=== PATIENT | male | born 1965 | race Caucasian/White ===

== ENCOUNTER 2017-05-03 14:20 | Emergency (ER) | payer OTHER ==
[~2017-05-03] VITALS: Ht 170.2 cm; Wt 97.5 kg
--- NOTE | ~2017-05-03 | EKG ---
[address] [address] ELECTROCARDIOGRAM REPORT Name: INDRAHOUSTON [facility] [id number] Admission: 05/03/17 Attend Phys: Discharge: 05/03/17 Date of : 61 Report #: [id number] THIS REPORT FOR: //name// [facility] ED Test Date: 2017-05-03 Test Time: 14:27:19 Pat Name: HOUSTON BURRELL Department: Room: Gender: M Training Officer: [id number] : 1965 Requested By: Taylor Alejandro Order Number: [id number] MD: Ayden Winter Measurements Intervals [place] Rate: 70 P: 39 RI: 160 QRS: -55 QRSD: 95 T: 61 QT: 412 QTc: 445 Interpretive Statements Sinus rhythm Left anterior fascicular block Compared to ECG 04/04/2017 09:10:11 No significant changes Electronically Signed On 05-04-2017 13:26:31 CDT by Ayden Winter [email or web address] <ELECTRONICALLY SIGNED> By: Ayden Winter MD 05/04/17 1326 26 26 Ayden Winter MD /IRINA
[~2017-05-03 14:20] MED LIST: ASPIR 8181 MG PO; HYDROCODON-ACE1 EAC8 PO; METHOCARBAMOL500 M2 PO; MOBIC15 MG PO; NEURONTIN 300300 M1 PO; PERCOCET PO; REMERON 30 MG T30 M1 PO; VITAMIN D1000 UNI1 PO
[2017-05-03] MEDS ORDERED: DICLOFENAC SODI75 MG PO (14:44)
[2017-05-03] MEDS ORDERED: PREDNISONE 20 M20 MG PO (15:27)
[2017-05-03] MEDS ORDERED: NAPROSYN500 MG PO (15:27)
== END 2017-05-03 16:00 | disposition home or self-care (01) ==
LOC: ER 14:20
DX: M54.12 Radiculopathy, cervical region (principal); M19.90 Unspecified osteoarthritis, unspecified site; F17.210 Nicotine dependence, cigarettes, uncomplicated; F10.99 Alcohol use, unspecified with unspecified alcohol-induced disorder; Z87.442 Personal history of urinary calculi

== ENCOUNTER 2018-01-04 16:46 | Inpatient (IN) | payer OTHER ==
[~2018-01-04] VITALS: Ht 172.7 cm; Wt 99.8 kg
--- NOTE | ~2018-01-04 | HC ---
[facility] [place] [address] CONSULTATION Name: HOUSTON BURRELL Room #: 352-P [facility] IN ..#: [id number] Admission: 01/04/18 Attend Phys: Diogo Colón MD Discharge: Date of : 61 Report #: [id number] THIS REPORT FOR: //name// CC: Diogo Watts REASON FOR CONSULTATION: Syncope. HISTORY OF PRESENT ILLNESS: The patient is a 52-year-old smoker, who presented after having a syncopal episode. 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 He said it was very hot day. The night before he had 3-4 beers. He typically drinks about 6 beers a day. He said that it was very hot and went to get a glass of water, and while walking, he had a sudden syncopal episode. He felt somewhat lightheaded prior. He was brought to the Emergency Room for further evaluation. He denies any current chest pain or chest tightness. He does have some mild shortness of breath. He denies PND or orthopnea. He denies prior syncopal episodes. REVIEW OF SYSTEMS: Twelve point review of systems was performed and was negative other than what I mentioned in HPI. PAST MEDICAL HISTORY: 1. Tobacco abuse. 2. Some alcohol abuse. 3. Prior nephrectomy. 4. Kidney stones. 5. Prior umbilical hernia surgery. FAMILY HISTORY: Noncontributory. SOCIAL HISTORY: He is a smoker and alcohol use. ALLERGIES: No known drug allergies. HOME MEDICATIONS: Include valsartan, hydrocodone, methocarbamol, gabapentin, Remeron, aspirin. PHYSICAL EXAMINATION: VITAL SIGNS: Temperature is 36.7, pulse 65, respirations 18, blood pressure 165/105, sats are 95%. GENERAL: He is in no acute distress. HEENT: Oropharynx is clear. NECK: Supple, with no thyromegaly. HEART: Regular rate and rhythm with no murmurs, rubs, gallops. He does not have elevated jugular venous pressure. LUNGS: Clear to auscultation bilaterally. ABDOMEN: Soft, nontender, nondistended with no hepatosplenomegaly. [facility] [address] [place] [address] CONSULTATION Name: HOUSTON BURRELL Room #: 352-P [facility] IN [facility]#: [id number] Admission: 01/04/18 Attend Phys: Diogo Colón MD Discharge: Date of : 61 Report #: [id number] EXTREMITIES: No clubbing, cyanosis, edema. NEUROLOGIC: Cranial nerves 2-12 are intact. LABORATORY DATA: CBC is normal. Blood gas shows pO2 of 59. Chemistries are normal with a creatinine of 1.3. Troponin was negative x 1. LDL is elevated at 139. TSH is 0.125. CT scan of the chest showed no PE. There is some evidence of COPD. He has a 1.[address] head was negative. EKG shows normal sinus rhythm with no ischemic changes. Telemetry shows no significant arrhythmias. ASSESSMENT: 1. Syncope. 2. Tobacco abuse. 3. Alcohol abuse. 4. Possible chronic obstructive pulmonary disease. SUMMARY: The patient is a 52-year-old with a syncopal episode. On telemetry, there has not been any arrhythmias. He has no significant conduction disease on his EKG. To complete his cardiac evaluation, I would like him to undergo an echocardiogram tomorrow and also have him undergo stress testing given his tobacco abuse and hyperlipidemia to rule out ischemia. If these are normal, then likely cause of his syncope was dehydration with a vagal episode. We will continue to follow. By: 1026 1159 Ayden Winter MD /nt
--- NOTE | ~2018-01-04 | EKG ---
[address] [address] [facility] [address] ELECTROCARDIOGRAM REPORT Name: HOUSTON BURRELL Room #: [facility]#: [id number] Admission: Attend Phys: Discharge: Date of : 61 Report #: [id number] THIS REPORT FOR: //name// [facility] ED Test Date: 2018-01-04 Test Time: 17:05:13 Pat Name: HOUSTON BURRELL Department: Room: Gender: M Hand Alterations Tailor: sveta : 1965 Requested By: Karan Vásquez Order Number: [id number] MD: Ayden Winter Measurements Intervals [place] Rate: 91 P: 59 [place]: 181 QRS: -57 QRSD: 92 T: 67 QT: 393 QTc: 484 Interpretive Statements Sinus rhythm Probable left atrial enlargement Left anterior fascicular block Baseline wander in lead(s) V2 Compared to ECG 05/03/2017 14:27:19 No significant changes Electronically Signed On 01-04-2018 17:31:54 CDT by Ayden Winter [email or web address] <ELECTRONICALLY SIGNED> By: Ayden Winter MD 01/04/18 1731 Ayden Winter MD /IRINA
--- NOTE | ~2018-01-04 | 2DMMODE ---
[facility] [address] [place] [address] 2 D/M-MODE ECHOCARDIOGRAM Name: HOUSTON BURRELL Room #: 352-P [facility] IN ..#: [id number] Admission: 01/04/18 Attend Phys: Diogo Colón, Discharge: Date of : 61 Date of Service: 01/07/18 1000 Report #: [id number] THIS REPORT FOR: //name// APPROVED REPORT Study performed: 01/07/2018 08:46:05 EXAM: Comprehensive 2D, Doppler, and color-flow Echocardiogram Patient Location: Echo lab Room #: [facility] Status: routine BSA: 2.11 Other Information Study Quality: Adequate Indications Dyspnea Syncope 2D Dimensions RVDd: 34.89 mm LVEF(%): 58.02 (>50%) IVSd: 13.08 (7-11mm) LVOT Diam: 21.62 (18-24mm) LVDd: 46.07 mm PWd: 14.01 (7-11mm) Ascending Ao: 33.96 (22-36mm) LVDs: 32.02 (25-40mm) Aortic Root: 27.25 mm IVC: 17.00 mm Gallagher's LVEF: 58.02 % Volumes Left Atrial Volume (Systole) Single Plane 4CH: 57.24 mL Single Plane 2CH: 63.34 mL LA ESV Index: 32.00 mL/m2 Aortic Valve AoV Peak Uriel.: 1.78 m/s AO Peak Gr.: 12.60 mmHg LVOT Max P.79 mmHg LVOT Max V: 1.30 m/s RODRI Vmax: 2.69 cm2 Mitral Valve E/A Ratio: 1.1 MV Decel. Time: 240.39 ms MV E Max Uriel.: 1.12 m/s [facility] [place] [address] 2 D/M-MODE ECHOCARDIOGRAM Name: HOUSTON BURRELL Room #: 352-P [facility] IN .R.#: [id number] Admission: 01/04/18 Attend Phys: Diogo Colón, Discharge: Date of : 61 Date of Service: 01/07/18 1000 Report #: [id number] MV A Uriel.: 1.00 m/s MV PHT: 69.71 ms IVRT: 152.25 ms Pulmonary Valve PV Peak Uriel.: 1.16 m/s PV Peak Gr.: 5.41 mmHg Pulmonary Vein P Vein S: 0.57 m/s P Vein A: 0.23 m/s P Vein D: 0.50 m/s P Vein A Dur.: 120.0 msec P Vein S/D Ratio: 1.14 Tricuspid Valve TR Peak Uriel.: 2.59 m/s TR Peak Gr.: 26.78 mmHg PA Pressure: 32.00 mmHg Left Ventricle The left ventricle is normal size. There is normal LV segmental wall motion. Mild concentric left ventricular hypertrophy. The left ventricular systolic function is normal. The left ventricular ejection fraction is within the normal range. LVEF is 55-60%. The left ventricular diastolic function is normal. Right Ventricle The right ventricle is normal size. The right ventricular systolic function is normal. Atria The left atrium size is normal. The right atrium size is normal. Aortic Valve The aortic valve is normal in structure. No aortic regurgitation is present. There is no aortic valvular stenosis. Mitral Valve The mitral valve is normal in structure. There is no mitral valve regurgitation noted. No evidence of mitral valve stenosis. Tricuspid Valve The tricuspid valve is normal in structure. There is trace tricuspid regurgitation. Estimated PAP 32 mmHg. Pulmonic Valve The pulmonary valve is normal in structure. There is no pulmonic [facility] [address] [place] [address] 2 D/M-MODE ECHOCARDIOGRAM Name: HOUSTON BURRELL Room #: 352-P [facility] IN [facility]#: [id number] Admission: 01/04/18 Attend Phys: Diogo Colón, Discharge: Date of : 61 Date of Service: 01/07/18 1000 Report #: [id number] valvular regurgitation. Great Vessels The aortic root is normal in size. IVC is normal in size and collapses >50% with inspiration. Pericardium There is no pericardial effusion. <Conclusion> The left ventricular systolic function is normal. There is normal LV segmental wall motion. LVEF 55-60%. Normal diastolic function The aortic valve is normal in structure. No aortic regurgitation or stenosis The mitral valve is normal in structure. No mitral valve regurgitation There is trace tricuspid regurgitation. Estimated pulmonary artery pressure of 32 mmHg. There is no pericardial effusion. <ELECTRONICALLY SIGNED> By: Alexandro Corea MD, FACC 01/07/18 1000 1000 1000 Alexandro Corea MD, FACC /INF
[~2018-01-04 16:46] MED LIST changes: +DICLOFENAC SODI75 MG PO; +NAPROSYN500 MG PO; +PREDNISONE 20 M20 MG PO
[2018-01-04 16:50] VITALS: BP 105/55
[2018-01-04 17:21] LABS: BE(vivo) -5.2 mmol/L (-2 to +3); HCO3 18.6 mmol/L (22.0-26.0); PCO2 31.8 mmHg (35.0-45.0); PO2 59.2 mmHg (80.0-100.0); pH 7.384 (7.360-7.450); sO2 90.7 % (92.0-98.0)
[2018-01-04] MEDS ORDERED: DIOVAN 80 MG TA80 M1 PO (17:53)
[2018-01-04 18:08] LABS: ABSOLUTE NEUTROPHILS 12.6 thou/uL (1.4-8.2); BASOPHILS 0.6 % (0.0-2.0); EOSINOPHILS 0.9 % (0.0-3.0); HEMATOCRIT 48.1 % (42.0-52.0); HEMOGLOBIN 16.6 gm/dL (14.0-18.0); LYMPHOCYTES 8.2 % (24.0-44.0); MCH 32.1 pg (26.0-34.0); MCHC 34.5 g/dL (28.0-37.0); MCV 93.1 fL (80.0-100.0); MONOCYTES 4.6 % (1.0-8.0); PLATELET COUNT 161 thou/uL (150-400); POLYS 85.7 % (36.0-66.0); RBC 5.16 mil/uL (4.50-6.00); RDW 12.9 % (10.5-14.5); WBC 14.7 thou/uL (4.0-11.0)
[2018-01-04 18:16] LABS: ANION GAP 14 mmol/L (7-16); BUN 13 mg/dL (7-18); CALCIUM 9.2 mg/dL (8.5-10.1); CHLORIDE 104 mmol/L (98-107); CO2 19 mmol/L (21-32); CREATININE 1.5 mg/dL (0.7-1.3); GLUCOSE 117 mg/dL (74-106); SODIUM 137 mmol/L (136-145)
[2018-01-04 18:18] LABS: URINE BILIRUBIN NEGATIVE (Negative); URINE BLOOD 1+ (Negative); URINE CLARITY CLEAR; URINE COLOR YELLOW; URINE GLUCOSE-RANDOM* NEGATIVE (Negative); URINE KETONES NEGATIVE (Negative); URINE LEUKOCYTES-REFLEX NEGATIVE (Negative); URINE NITRITE-REFLEX NEGATIVE (Negative); URINE PROTEIN (DIPSTICK) 2+ (Negative); URINE SPECIFIC GRAVITY >= 1.030 (1.005-1.035); URINE UROBILINOGEN 0.2 E.U./dl (0.2-1.0)
[2018-01-04 18:25] LABS: TROPONIN-I < 0.04 ng/mL (<0.06)
[2018-01-04 18:27] LABS: AMP/METHAMP Negative (Negative); BARBITURATES Negative (Negative); BENZODIAZEPINES Negative (Negative); COCAINE Negative (Negative); METHADONE Negative (Negative); OPIATES POSITIVE (Negative); PCP Negative (Negative)
[2018-01-04 18:34] LABS: BACTERIA-REFLEX 1-9 Few /HPF (None Seen); CASTS None Seen /LPF (None Seen); CRYSTALS None Seen /LPF (None Seen); SQUAMOUS None Seen /LPF (0-3); URINE RBC 0-2 Rare /HPF (0-2); URINE WBC-REFLEX None Seen /HPF (0-5)
[2018-01-04 20:06] VITALS: BP 158/97
[2018-01-04 20:45] VITALS: BP 154/80
[2018-01-04] MEDS ORDERED: HYDROCODON-ACE1 EAC8 PO (23:16)
[2018-01-04] MEDS ORDERED: METHOCARBAMOL500 M1 PO (23:18)
[2018-01-05 04:41] VITALS: BP 150/88
[2018-01-05 07:20] VITALS: BP 150/78
[2018-01-05 10:18] LABS: HEMATOCRIT 45.9 % (42.0-52.0); HEMOGLOBIN 15.8 gm/dL (14.0-18.0); MCH 32.1 pg (26.0-34.0); MCHC 34.5 g/dL (28.0-37.0); MCV 93.1 fL (80.0-100.0); RBC 4.93 mil/uL (4.50-6.00); WBC 10.2 thou/uL (4.0-11.0)
[2018-01-05 10:32] LABS: CALCIUM 8.5 mg/dL (8.5-10.1); CREATININE 1.3 mg/dL (0.7-1.3); POTASSIUM 3.8 mmol/L (3.5-5.1)
[2018-01-05 11:31] VITALS: BP 143/96
[2018-01-05 12:34] LABS: CHOLESTEROL 208 mg/dL (<200); HDL CHOLESTEROL 50 mg/dL (>40); LDL CHOLESTEROL 138 mg/dL (<100); TC:HDL 4.2 Ratio (Not establshd); TRIGLYCERIDE 102 mg/dL (<150); VLDL 20 mg/dL (<40)
[2018-01-05 16:48] VITALS: BP 147/81
[2018-01-05 19:40] VITALS: BP 157/86
[2018-01-06 00:07] LABS: GLYCOHEMOGLOBIN (HGB A1C) 5.4 % (4.8-5.6)
[2018-01-06 04:00] VITALS: BP 154/82
[2018-01-06 07:32] VITALS: BP 165/105
[2018-01-06 11:37] VITALS: BP 156/95
[2018-01-06 15:36] VITALS: BP 141/93
[2018-01-06 19:30] VITALS: BP 157/88
[2018-01-07] VITALS (7 sets, daily range): BP systolic 150–183; BP diastolic 81–105
[2018-01-08 03:30] VITALS: BP 139/99
[2018-01-08 09:53] VITALS: BP 131/87
[2018-01-08 11:21] VITALS: BP 137/93
[2018-01-08 13:50] VITALS: BP 137/93
== END 2018-01-08 14:04 | disposition home or self-care (01) | DRG 922 ==
LOC: ER 16:46 → EROBS 19:36 → 3W 19:36
PROVIDERS: Emergency Medicine; Nurse Practitioner Acute Care; Psychiatry & Neurology Neurology
DX: T67.5XXA Heat exhaustion, unspecified, initial encounter (principal); J96.01 Acute respiratory failure with hypoxia; N17.9 Acute kidney failure, unspecified; F17.210 Nicotine dependence, cigarettes, uncomplicated; E78.5 Hyperlipidemia, unspecified; E86.0 Dehydration; E66.9 Obesity, unspecified; G89.29 Other chronic pain; M54.2 Cervicalgia; F10.10 Alcohol abuse, uncomplicated; M19.90 Unspecified osteoarthritis, unspecified site; S09.90XA Unspecified injury of head, initial encounter; R51 Headache; I10 Essential (primary) hypertension; W18.39XA Other fall on same level, initial encounter; Y90.9 Presence of alcohol in blood, level not specified; Z79.2 Long term (current) use of antibiotics; Z79.82 Long term (current) use of aspirin; Z79.899 Other long term (current) drug therapy; Z98.890 Other specified postprocedural states; Z90.5 Acquired absence of kidney; Z87.442 Personal history of urinary calculi; Z68.33 Body mass index [BMI] 33.0-33.9, adult; Y93.89 Activity, other specified; Y92.89 Other specified places as the place of occurrence of the external cause; Y99.8 Other external cause status
CPT/HCPCS: 10879

== ENCOUNTER → 2020-04-27 | Outpatient (CLI) | payer OTHER ==
[~2020-04-27] MED LIST changes: +DIOVAN 80 MG TA80 M1 PO; +METHOCARBAMOL500 M1 PO
--- NOTE | 2020-05-03 13:07 | PATH ---
[facility] [address] [place] [address] PATHOLOGY RPT PROCEDURE Name: CHUY BURRELL Adan Room #: REG FARIDA Al.#: [id number] Admission: 04/27/20 Date of : 61 Discharge: Report #: [id number] Path Case #: [id number] [facility] Accession Number: [id number] . 01 Material submitted: . parotid gland - RIGHT PAROTID MASS. Modifiers: right . 01 Clinical history: . RAD/CHEST PA-LAT/UX/BX SOFT TISSUE MASS/RT PARTOID . 02 Diagnosis: Parotid, right parotid mass, needle core biopsy: - Focal non-necrotizing granulomatous inflammation associated with fibrosis. - Background salivary gland parenchyma showing mild acute and chronic inflammation. - Negative for malignancy. (IUV:pit 04/29/2020) QTP 04/29/2020 1304 Local . 02 Comment: Acid fast bacillus and Gomori methenamine silver stains performed on block A2 show no definitve mycobacterial as well as fungal elements, respectively. . Co-review: Data Processing Control Clerk slides were co-reviewed by Dr. Neftaly Ames who concurs with my diagnosis. (IUV:pit 04/29/2020) . 02 Addendum: . Special studies report received from [facility], [address] [place] [address], [address], [place], [address], on case [id number], labeled with their number [id number], dated 04/30/2020. . Flow Cytometry: Hematologic Neoplasia Assessment . Clinical History Right parotid mass . Indication for Study Evaluation for hematolymphoid neoplasia . Specimen Tissue, Right Parotid . Viability 33% (7AAD exclusion) [address] [address] PATHOLOGY RPT PROCEDURE Name: CHUY BURRELL Adan Room #: REG [facility].#: [id number] Admission: 04/27/20 Date of : 61 Discharge: Report #: [id number] Path Case #: [id number] . Interpretation Tissue, Right Parotid: No significant lymphoid immunophenotypic abnormalities detected . Comments No immunophenotypic evidence of non-Hodgkin lymphoma, blastic cells or plasmacytoma is detected in this analysis. Some large cell lymphomas are prone to rapid degeneration which can render such lesions undetectable by flow cytometry. Also, Hodgkin lymphoma, some T cell lymphomas, and T-cell-rich B-cell lymphoma may not be detectable by flow cytometry. A thorough clinical, histologic and immunohistochemical correlation is recommended for full exclusion of non-hematolymphoid cellular processes, atypical lymphoid reactions, granulomatous disease or Hodgkin lymphoma. . Populations Analyzed Lymphocytes: 26% B-cells: 3.2%, polytypic/polyclonal sIg light chain pattern (K/L= 2.4:1) T-cells: no significant abnormalities of the markers tested CD4:CD8: 1.8 NK cells: 2.1% Granulocytes: 10% Present and phenotypically unremarkable for the markers tested Monocytes/ 1% Present and phenotypically unremarkable for the Histiocytes: markers tested CD45 Negative 63% No significant reactivity with the markers tested Events/Debris: (may represent non-hematolymphoid cells, degenerated cells, debris, unlysed red blood cells, etc.) . Morphologic Evaluation A slide was reviewed for quality control clerk purposes only. . Specimen Description Total Cell Yield: 0.32 X 10 and 6 Due to a low cellular yield, less than 10,000 events were acquired. Flow cytometry data derived from an acquisition of less than 10,000 events needs to be interpreted within the context of all clinical, laboratory, and morphologic information. . Reagent(s) Used CD2, CD3, CD4, CD5, CD7, CD8, CD10, CD11b, CD19, CD20, CD23, CD30, CD38, CD43, CD45, CD56, CD57, FMC-7, HLA-DR, kappa, lambda . at [employer] [employer]. Shola Velásquez [place] [address] PATHOLOGY RPT PROCEDURE Name: CHUY BURRELL Room #: REG [facility]ARIDA Bonds#: [id number] Admission: 04/27/20 Date of : 61 Discharge: Report #: [id number] Path Case #: [id number] . . Intended Use Flow cytometry is optimally used to immunophenotypically characterize abnormal populations when they are detected. Negative flow cytometry results do not exclude lymphoma or neoplasia. Possible false negative flow cytometry results may occur in, but are not limited to, the following: neoplastic cells in Hodgkin lymphoma are not typically adequately represented by routine clinical flow cytometry; neoplastic cells may be lost or inadequately represented due to degeneration, sample processing, sampling artifact, or patchy involvement; plasma cells are typically underrepresented by flow cytometry; immature cells/blasts may be underrepresented due to hemodilution; myeloproliferative disorders and low grade myelodysplasia may not have immunophenotypic abnormalities or increased blasts. Correlation with all available clinical, laboratory, and morphologic data is always necessary to assess for the possibility of false negative flow cytometry results and to establish a diagnosis. Each marker in this analysis was used to assess for potential antigenic abnormalities or to evaluate detected abnormalities. . Any image or images that accompany this report are lead customer service representative images only and should not be used to render a diagnosis. . Disclaimer(s) This test was developed and its performance characteristics determined by [employer]. It has not been cleared or approved by the Food and Drug Administration. . [facility] is a business unit of [employer] a wholly-owned subsidiary of [facility]. . This test was performed at [facility]. at [address], [place], [address] - Information Systems Security Developer: Sandor Hallman MD. . For inquiries, the physician may contact Lab: [phone] . A complete copy of the report is on file. . Professional services performed by [facility]. at [address], [place] [address]. Technical services performed by [facility]. at [address], [place] [address]. . (IUV:amj 04/30/2020) . [facility] [address] [place] [address] PATHOLOGY RPT PROCEDURE Name: CHUY BURRELL Room #: REG [facility]#: [id number] Admission: 04/27/20 Date of : 61 Discharge: Report #: [id number] Path Case #: [id number] AZJ/04/30/2020 Addendum Electronically Signed by Dayan Morataya MD, Pathologist . 02 Electronically signed: . Dayan Morataya MD, Pathologist NPI- [id number] . 01 Gross description: . The specimen is received in formalin, labeled "Chuy Burrell, right parotid mass". Received are two needle cores of pale adames soft tissue ranging in length from 0.7 to 1.0 cm in length by 0.1 cm in diameter. The specimen is submitted entirely in cassette A1 and A2. A portion of the specimen is received in RPMI solution and is forwarded on for flow cytometry studies. (CAA; 04/28/2020) QAC/QAC 04/28/2020 1031 Local . 02 Pathologist provided ICD-10: L98.9, K11.23 . 02 CPT . 840750, 390785, 726080 Specimen Comment: A courtesy copy of this report has been sent to [phone] Specimen Comment: [phone], Specimen Comment: Report sent to ,DR HORAN / DR JON Performed at: [address], [place], [place] [id number] MD Chirag Cota MD Phone: [phone] Performed at: [address] [id number] MD Dayan Morataya MD Phone: [phone]
== END | disposition home or self-care (01) ==
LOC: RAD 11:57
PROVIDERS: ATTEND Otolaryngology Plastic Surgery within the Head & Neck
DX: K11.23 Chronic sialoadenitis (principal); K11.21 Acute sialoadenitis; K11.8 Other diseases of salivary glands; L98.9 Disorder of the skin and subcutaneous tissue, unspecified; F17.210 Nicotine dependence, cigarettes, uncomplicated; Z98.890 Other specified postprocedural states; Z79.899 Other long term (current) drug therapy

== ENCOUNTER → 2020-06-01 | Outpatient (CLI) | payer OTHER | LOC: LAB 10:54 | PROVIDERS: ATTEND Anesthesiology | DX: Z01.812 Encounter for preprocedural laboratory examination (principal); Z20.828 Contact with and (suspected) exposure to other viral communicable diseases ==

== ENCOUNTER → 2021-06-03 | Outpatient (CLI) | payer OTHER ==
--- NOTE | 2021-06-10 10:08 | PATH ---
[facility] [address] [place] [address] PATHOLOGY RPT PROCEDURE Name: CHUY BURRELL Room #: REG FARIDA Al.#: [id number] Admission: 06/03/21 Date of : 61 Discharge: Report #: [id number] Path Case #: [id number] LCA Accession Number: [id number] . 01 Material submitted: . neck - LEFT NECK MASS. Modifiers: left . 01 Clinical history: . NECK MASS . 02 Diagnosis: Left neck node, needle core biopsies: - Lymphoid tissue and oncocytic-type neoplasm, favor Warthin's tumor. - Negative for malignancy. Please see diagnostic comment. (ANK:frederick; 06/08/2021) QMS 06/08/2021 1111 Local . 02 Comment: A flow cytometry study is pending and will be signed out as an addendum. . This case has been coreiwed with who agrees on 06/09/21. (ANK:frederick; 06/08/2021) . 02 Addendum: . Special studies report received from [facility], [address] [place] [address], [address], [place], [address], on case [id number], labeled with their number [id number], dated 06/09/2021. . Flow Cytometry: Hematologic Neoplasia Assessment . Clinical History Neck mass . Indication For Study Evaluation for lymphadenopathy . Specimen Lymph Node, Left Neck . Viability 52% (7AAD exclusion) . Interpretation Lymph Node, Left Neck: No significant lymphoid immunophenotypic abnormalities detected . Comments [address] [address] PATHOLOGY RPT PROCEDURE Name: CHUY BURRELL Room #: REG [facility]#: [id number] Admission: 06/03/21 Date of : 61 Discharge: Report #: [id number] Path Case #: [id number] Hodgkin lymphoma, carcinomas, some large cell lymphomas and some peripheral T-cell lymphomas cannot be categorically excluded by flow cytometric analysis. Correlation with the morphologic findings is recommended. . Results should be interpreted with caution due to reduced viability of the specimen (52%). . Populations Analyzed Lymphocytes: 46% B-cells: 10.0%, polytypic/polyclonal sIg light chain pattern T-cells: no significant abnormalities of the markers tested CD4:CD8: 6.9 NK cells: 0.4% CD45 Negative 54% No significant reactivity with the markers tested Events/Debris: (may represent non-hematolymphoid cells, degenerated cells, debris, unlysed red blood cells, etc.) . Morphologic Evaluation A slide was reviewed for quality assurance qa lab analyst purposes only. . Specimen Description Total Cell Yield: 0.87 X 10 and 6 Viability is less than 80%. Flow cytometry data derived from samples with <80% viability need to be interpreted within the context of all clinical and laboratory data available. . Pertinent Prior Test Results Received Date Test Type Specimen Type Result 04/28/2020 Flow Cytometry Tissue Result Number: [id number] Tissue, Right Parotid: No significant lymphoid immunophenotypic abnormalities detected . Reagent(s) Used CD2, CD3, CD4, CD5, CD7, CD8, CD10, CD11b, CD19, CD20, CD23, CD30, CD38, CD43, CD45, CD56, CD57, FMC-7, HLA-DR, kappa, lambda . at [facility]. Gino Waggoner MD Hematopathologist . Intended Use Flow cytometry is optimally used to immunophenotypically characterize abnormal populations when they are detected. Negative flow cytometry [address] [address] PATHOLOGY RPT PROCEDURE Name: CHUY BURRELL Room #: REG [facility] Bonds#: [id number] Admission: 06/03/21 Date of : 61 Discharge: Report #: [id number] Path Case #: [id number] results do not exclude lymphoma or neoplasia. Possible false negative flow cytometry results may occur in, but are not limited to, the following: neoplastic cells in Hodgkin lymphoma are not typically adequately represented by routine clinical flow cytometry; neoplastic cells may be lost or inadequately represented due to degeneration, sample processing, sampling artifact, or patchy involvement; plasma cells are typically underrepresented by flow cytometry; immature cells/blasts may be underrepresented due to hemodilution; myeloproliferative disorders and low grade myelodysplasia may not have immunophenotypic abnormalities or increased blasts. Correlation with all available clinical, laboratory, and morphologic data is always necessary to assess for the possibility of false negative flow cytometry results and to establish a diagnosis. Each marker in this analysis was used to assess for potential antigenic abnormalities or to evaluate detected abnormalities. . Any image or images that accompany this report are manufacturers representative images only and should not be used to render a diagnosis. . Disclaimer(s) This test was developed and its performance characteristics determined by [facility]. It has not been cleared or approved by the Food and Drug Administration. . [facility] is a business unit of [employer] a wholly-owned subsidiary of [employer]. . This test was performed at [facility]. at [address] [place], [address] - Cw Operator: Sandor Hallman MD. . For inquiries, the physician may contact Lab: [phone] . A complete copy of the report is on file. . Professional services performed by [facility]. at [address], [place] [address]. Technical services performed by [facility]. at [address], [place] [address]. . (ANK:yoselyn 06/09/2021) . NNK/06/09/2021 Addendum Electronically Signed by Devorah Cates MD PATHOLOGIST . 02 Electronically signed: . Devorah Cates MD, Pathologist [address] [address] PATHOLOGY RPT PROCEDURE Name: CHUY BURRELL Room #: REG [facility]#: [id number] Admission: 06/03/21 Date of : 61 Discharge: Report #: [id number] Path Case #: [id number] NPI- [id number] . 01 Gross description: . The specimen is received in formalin, labeled "Chuy Burrell, left neck node". Received are two needle cores of pale adames tissue measuring 0.9 and 1.2 cm in length, with each measuring 0.1 cm in diameter. The specimen is submitted entirely in cassettes A1 and A2. A portion of the specimen is received in RPMI solution and is forwarded to an outside laboratory for cytometry studies. (CAA; 06/07/2021) QAC/QAC 06/07/2021 1425 Local . 02 Pathologist provided ICD-10: D49.89 . 02 CPT . 600545 Specimen Comment: A courtesy copy of this report has been sent to [phone] Specimen Comment: Report sent to Performed at: [address] [facility], [place] [id number] MD Reid Goldsmith MD Phone: [phone] Performed at: [address] [id number] MD Dayan Morataya MD Phone: [phone]
== END | disposition home or self-care (01) ==
LOC: ULTRA 12:51
PROVIDERS: ATTEND Otolaryngology Plastic Surgery within the Head & Neck
DX: D49.89 Neoplasm of unspecified behavior of other specified sites (principal); F17.210 Nicotine dependence, cigarettes, uncomplicated; Z98.890 Other specified postprocedural states; Z79.899 Other long term (current) drug therapy